=== PATIENT | female | born 1990 | race African-American/Black ===

== ENCOUNTER 2022-06-25 11:01 | Emergency (ER) | payer MEDICAID, OTHER ==
[~2022-06-25] VITALS: Ht 165.1 cm; Wt 91.0 kg
[~2022-06-25 11:01] MED LIST: ARIP2TAB3 PO; FLUO10CA25 PO; LITH150C PO
[2022-06-25] MEDS ORDERED: ACETAMINOPHEN 325MG TABLET PO NR (12:00)
[2022-06-25 12:08] LABS: BASOPHILS % 0.7 % (0.0-2.0); EOSINOPHILS % 5.7 % (0.0-5.0); HEMATOCRIT. 38.1 % (36.0-48.0); HEMOGLOBIN. 12.5 g/dL (12.0-16.0); LYMPHOCYTES % 27.4 % (20.0-50.0); MEAN CORPUSCULAR HEMOGLOBIN 29.5 pg (28.0-32.0); MEAN CORPUSCULAR VOLUME 89.5 fL (81.0-99.0); MEAN PLATELET VOLUME 9.2 fl (7.4-10.4); MONOCYTES % 8.4 % (2.0-8.0); NEUTROPHILS % 57.8 % (40.0-76.0); PLATELET 302 x1000/uL (130-400); RED BLOOD CELL COUNT 4.25 mill/uL (4.2-5.4); RED CELL DISTRIBUTION WIDTH 14.8 % (11.6-14.6)
[2022-06-25 12:21] LABS: CHLORIDE 113 mEq/L (98-107)
[2022-06-25] MEDS ORDERED: TOPUD PO (13:13)
[2022-06-25 14:09] VITALS: BP 128/78
== END 2022-06-25 14:16 | disposition home or self-care (01) ==
LOC: ER 11:01
DX: R07.89 Other chest pain (principal); I10 Essential (primary) hypertension; F20.9 Schizophrenia, unspecified; F31.9 Bipolar disorder, unspecified; F12.10 Cannabis abuse, uncomplicated; F17.210 Nicotine dependence, cigarettes, uncomplicated; Z91.14 Patient's other noncompliance with medication regimen
CPT/HCPCS: 36415; 71045; 80053; 81025; 83880; 84484; 85025; 93005; 99285; Z7610

== ENCOUNTER 2022-08-24 12:14 | Emergency (ER) | payer OTHER ==
[~2022-08-24] VITALS: Ht 170.2 cm; Wt 122.0 kg
[~2022-08-24 12:14] MED LIST changes: +TOPUD PO
[2022-08-24 12:18] VITALS: BP 120/86
== END 2022-08-24 12:51 | disposition home or self-care (01) ==
LOC: ER 12:14
DX: H92.01 Otalgia, right ear (principal); F31.9 Bipolar disorder, unspecified; I10 Essential (primary) hypertension; F20.9 Schizophrenia, unspecified; F12.10 Cannabis abuse, uncomplicated
CPT/HCPCS: 99283

== ENCOUNTER 2022-11-01 13:51 | Emergency (ER) | payer OTHER ==
[~2022-11-01] VITALS: Ht 170.2 cm; Wt 121.0 kg
[2022-11-01 14:11] VITALS: BP 144/105; PULSE 66; RESP 19; TEMP 98.3; O2SAT 98
[2022-11-01 16:14] LABS: *AMPHETAMINES SCREEN URINE NEGATIVE (NEGATIVE); *BARBITURATES SCREEN URINE NEGATIVE (NEGATIVE); *BENZODIAZEPINES SCREEN URINE NEGATIVE (NEGATIVE); *COCAINE SCREEN URINE NEGATIVE (NEGATIVE); METHADONE URINE SCREEN NEGATIVE (NEGATIVE); OPIATES URINE SCREEN NEGATIVE (NEGATIVE); PHENCYCLIDINE URINE SCREEN NEGATIVE (NEGATIVE)
[2022-11-01 16:30] LABS: CANNABINOID URINE SCREEN PRESUMTIVE POSITIVE (NEGATIVE)
[2022-11-05 10:10] LABS: NEISSERIA GONORRHOEAE NAA Negative (Negative)
== END 2022-11-01 15:02 | disposition home or self-care (01) ==
LOC: ER 14:16
DX: A64 Unspecified sexually transmitted disease (principal); F20.9 Schizophrenia, unspecified; F31.9 Bipolar disorder, unspecified; F12.10 Cannabis abuse, uncomplicated
CPT/HCPCS: 80305; 87491; 87591; 99283

== ENCOUNTER 2023-12-05 18:54 | Emergency (ER) | payer OTHER ==
[~2023-12-05] VITALS: Ht 172.7 cm; Wt 95.0 kg
[2023-12-05 19:10] VITALS: O2SAT 100
[2023-12-05] MEDS ORDERED: SODIUM CHLORIDE 0.9% 1,000 ML IV ONE (20:30)
[2023-12-05 20:35] LABS: BASOPHILS % 0.4 % (0.0-2.0); EOSINOPHILS % 1.9 % (0.0-5.0); HEMATOCRIT. 39.8 % (36.0-48.0); HEMOGLOBIN. 12.9 g/dL (12.0-16.0); LYMPHOCYTES % 23.7 % (20.0-50.0); MEAN CORPUSCULAR HEMOGLOBIN 30.2 pg (28.0-32.0); MEAN CORPUSCULAR HGB CONC 32.4 g/dL (31.0-37.0); MEAN CORPUSCULAR VOLUME 93.2 fL (81.0-99.0); MEAN PLATELET VOLUME 8.3 fl (7.4-10.4); MONOCYTES % 7.1 % (2.0-8.0); NEUTROPHILS % 66.9 % (40.0-76.0); PLATELET 275 x1000/uL (130-400); RED BLOOD CELL COUNT 4.27 mill/uL (4.2-5.4); WHITE BLOOD COUNT 11.2 x1000/uL (4.5-11.0)
[2023-12-05 20:40] LABS: CHLORIDE 108 mEq/L (98-107); POTASSIUM 3.1 mEq/L (3.5-5.1); SODIUM 140 mEq/L (136-145)
[2023-12-05 20:41] LABS: CALCIUM 9.1 mg/dL (8.7-10.4); CARBON DIOXIDE 24 mEq/L (21-32)
[2023-12-05 20:46] LABS: CREATININE 0.8 mg/dL (0.6-1.0); GLUCOSE 86 mg/dL (70-105); UREA NITROGEN BLOOD 6 mg/dL (9-23)
[2023-12-05 20:48] LABS: ALANINE AMINOTRANSFERASE < 7 IU/L (10-49); ALBUMIN 4.6 g/dL (3.2-4.8); ASPARTATE AMINOTRANSFERASE 19 IU/L (<34); BILIRUBIN TOTAL 0.4 mg/dL (0.1-1.0); HCG SCREEN NEGATIVE; PROTEIN TOTAL 7.6 g/dL (6.0-8.3)
[2023-12-05] MEDS ORDERED: KETOROLAC 15MG/ML VIAL IV ONE (21:45)
[2023-12-05 22:30] VITALS: BP 132/98; PULSE 68; RESP 16; TEMP 36.83628; O2SAT 98
[2023-12-05 22:50] LABS: CLARITY URINE CLEAR (CLEAR); COLOR URINE YELLOW (YELLOW); GLUCOSE URINE NEGATIVE (NEGATIVE); KETONES URINE 1+ (NEGATIVE); LEUKOCYTE ESTERASE URINE NEGATIVE (NEGATIVE); NITRITE URINE NEGATIVE (NEGATIVE); OCCULT BLOOD URINE NEGATIVE (NEGATIVE); PH URINE 5.5 (4.5-8.0); PROTEIN URINE NEGATIVE (NEGATIVE); SPECIFIC GRAVITY URINE 1.023 (1.005-1.030)
[2023-12-05] MEDS ORDERED: NAPR-1074 MT (23:44)
[2023-12-06] MEDS ORDERED: IOHEXOL-300 100 ML BOTTLE ONE (05:51)
== END 2023-12-05 23:49 | disposition home or self-care (01) ==
LOC: ER 18:58
DX: N83.202 Unspecified ovarian cyst, left side (principal); F31.9 Bipolar disorder, unspecified; F20.9 Schizophrenia, unspecified; F12.10 Cannabis abuse, uncomplicated; Z79.899 Other long term (current) drug therapy
CPT/HCPCS: 99285; 74177; 76830; 76856; 80053; 81003; 84703; 83690; 85025; 36415; Q9967; J1885; J7030

== ENCOUNTER 2024-12-27 03:13 | Emergency (ER) | payer OTHER ==
[~2024-12-27] VITALS: Ht 170.2 cm; Wt 118.0 kg
[~2024-12-27 03:13] MED LIST changes: +FLUO10CA PO; -FLUO10CA25 PO; +NAPR-1074 MT
[2024-12-27 03:19] VITALS: O2SAT 98
[2024-12-27 03:42] VITALS: BP 138/85; PULSE 90; RESP 15; TEMP 36.7; O2SAT 100
[2024-12-27 04:14] LABS: BASOPHILS % 1.0 % (0.0-2.0); EOSINOPHILS % 1.9 % (0.0-5.0); HEMATOCRIT. 38.6 % (36.0-48.0); HEMOGLOBIN. 12.7 g/dL (12.0-16.0); LYMPHOCYTES % 23.0 % (20.0-50.0); MEAN PLATELET VOLUME 8.4 fl (7.4-10.4); MONOCYTES % 7.2 % (2.0-8.0); NEUTROPHILS % 66.9 % (40.0-76.0); PLATELET 273 x1000/uL (130-400); RED BLOOD CELL COUNT 4.30 mill/uL (4.2-5.4); RED CELL DISTRIBUTION WIDTH 13.4 % (11.6-14.6)
[2024-12-27 04:29] LABS: CREATININE 1.0 mg/dL (0.6-1.0); UREA NITROGEN BLOOD 8 mg/dL (9-23)
[2024-12-27 04:30] LABS: TROPONIN I HIGH SENSITIVITY < 4 ng/L (3.0-34)
== END 2024-12-27 05:55 | disposition home or self-care (01) ==
LOC: ER 03:13
DX: R07.89 Other chest pain (principal); R07.2 Precordial pain; F20.9 Schizophrenia, unspecified; F31.9 Bipolar disorder, unspecified
CPT/HCPCS: 36415; 71045; 80048; 84484; 85025; 93005; 99285